=== PATIENT | male | born 1980 | race Caucasian/White ===

== ENCOUNTER 2025-02-09 09:03 | Emergency (ER) | payer OTHER, SELFPAY ==
[2025-02-09 09:12] VITALS: BP 170/113
[2025-02-09 09:32] VITALS: BP 140/99
[2025-02-09 09:34] VITALS: BMI 34.2
--- NOTE | 2025-02-09 09:37 | ED.GENMED ---
History of Present Illness
<Randolph Peng MD - Last Filed: 02/09/25 19:40>
General
Chief Complaint: Blood Pressure Problem
Time Seen by Provider: 02/09/25 09:27
<Gardenia Morris MD, Resident - Last Filed: 02/09/25 12:30>
General
Source: patient
Exam Limitations: none
History of Present Illness
History of Present Illness:
Patient is a 44-year-old male who presents to the emergency department due to concerns of fatigue and high blood pressure. He has a history of ADHD for which he takes Adderall as needed for. He was in his normal state of health until Saturday
where he started to feel sluggish and fatigued. he likened the symptoms to a presentation that similar to his brother who contracted Lyme's disease last year. Is worried about possibly norm Lyme's let him to take his blood pressure. He
feels like he has tightness/tension in his chest area. Systolic blood pressure at home was measured between 170-180. The patient did not experience any pain, shortness of breath, nausea or vomiting. he attempted to relax and ignore the symptoms
but unfortunately he felt worried enough to go to the urgent care where they recommended that he present to the emergency department for further evaluation. He arrived to the emergency department but did not get triaged as he was uncertain if his
insurance would pay for the visit and he did not want to pay [id number]. The day prior to his presentation he went to the gym where he spent time in the sauna and then did some workout with lifting weights included. While he was on the
elliptical machine he noticed that his heart rate was 120 when it is usually elevated higher. Following his time at the gym he continued to feel extremely tired and was sleepy while he was driving which is not characteristic for him usually.
Past History
<Randolph Peng MD - Last Filed: 02/09/25 19:40>
Social History
Tobacco: Non-smoker
<Gardenia Morris MD, Resident - Last Filed: 02/09/25 12:30>
Past History
ED Past Medical History: Psychiatric ( ADHD)
ED Past Surgical History: Orthopedic ( right Achilles tendon repair)
Patient has exhibited threatening behavior?: No
Social History
Alcohol: Occasional
Drug: None
Employment: Employed
Family History
Family History: Hypertension ( father has hypertension) and Other ( grandfather has history of scleroderma)
Review of Systems
<Gardenia Morris MD, Resident - Last Filed: 02/09/25 12:30>
Review of Systems
Constitutional: Reports fatigue
EENT: Reports no symptoms
Respiratory: Reports no symptoms
Cardiac: Reports other ( chest tightness/tension)
ABD/GI: Reports no symptoms
: Reports no symptoms
Musculoskeletal: Reports no symptoms
Skin: Reports no symptoms
Neurological: Reports no symptoms
Endocrine: Reports no symptoms
Hematologic/Lymphatic: Reports no symptoms
Psychiatric: Reports no symptoms
Phy Exam
<Gardenia Morris MD, Resident - Last Filed: 02/09/25 12:30>
General Physical Exam
General Presentation: well appearing and no apparent distress
General age: appears stated age
General Skin: warm and dry
General Habitus: normal
General Mental: alert
General Hydration: appears well hydrated
ENT Exam
Additional ENT: Mallampati 3 airway
Cardiovascular Exam
Cardiovascular Exam: regular rate/rhythm, no edema, no gallop, no JVD, no murmur and normal peripheral pulses
Pulmonary Exam
Pulmonary Exam: lungs clear, no respiratory distress, no rales, chest non tender, no crackles, no rhonchi, no stridor, no wheezing and no cough
Neurological Exam
Neurological Exam: alert, oriented x3 and no motor deficits
Musculoskeletal Exam
Musculoskeletal Exam: full ROM
Psychiatric Exam
Psychiatric Exam: normal mood/affect
Course
<Randolph Peng MD - Last Filed: 02/09/25 19:40>
Orders/Labs/Results
Orders:
Orders
02/09/25 09:15
Electrocardiogram (*1) Urgent
Reason for Study: Hypertension, Benign
EKG- Treatment ONCE
02/09/25 10:19
Cardiovascular Evaluation Urgent
Comment: ADD ON
Complete Blood Count/No Diff Urgent
Comprehensive Metabolic Panel Urgent
LDL Cholesterol, Direct Urgent
Lyme Progressive Urgent
Troponin I Urgent
02/09/25 10:52
Add On- LAB Urgent
Tests Added?: TSH with reflex to free T4
Add On- LAB Urgent
Tests Added?: lipid panel
02/09/25 11:08
Add On- LAB Urgent
Tests Added?: lyme progress
02/09/25 11:15
Urinalysis Reflex To Culture Urgent
Date Specimen was Collected: 02/09/25
Time Specimen was Collected: 11:10
02/09/25 11:51
Add On- LAB Urgent
Tests Added?: lyme progressive
02/09/25 12:24
Discharge Patient As Directed
Abnormal Lab Results
02/09/25 02/09/25
10:19 11:15
WBC 10.9 H 10^3/uL
(4.8-10.8)
RBC 4.66 L 10^6/uL
(4.70-6.10)
MCH 32.8 H pg
(27.0-31.0)
Sodium 133 L mmol/L
(135-145)
AST 61 H U/L
(17-59)
ALT 66 H U/L
(0-50)
Triglycerides 1137 H mg/dl
(10-149)
Total Cholesterol 205 H mg/dl
(50-199)
Urine Ketones 1+ A
(Negative)
02/09/25 10:19
02/09/25 10:19
Vital Signs
Initial and Last Documented VS:
Initial Vital Signs
Temp Pulse Resp BP Pulse Ox
98.2 F 91 16 170/113 98
02/09/25 09:12 02/09/25 09:12 02/09/25 09:12 02/09/25 09:12 02/09/25 09:12
Last Documented Vital Signs
Temp Pulse Resp BP Pulse Ox
98.2 F 90 19 143/106 97
02/09/25 09:12 02/09/25 12:30 02/09/25 12:30 02/09/25 12:00 02/09/25 12:30
<Gardenia Morris MD, Resident - Last Filed: 02/09/25 12:30>
Orders/Labs/Results
Orders:
Orders
02/09/25 09:15
Electrocardiogram (*1) Urgent
Reason for Study: Hypertension, Benign
EKG- Treatment ONCE
02/09/25 10:19
Cardiovascular Evaluation Urgent
Comment: ADD ON
Complete Blood Count/No Diff Urgent
Comprehensive Metabolic Panel Urgent
LDL Cholesterol, Direct Urgent
Lyme Progressive Urgent
Troponin I Urgent
02/09/25 10:52
Add On- LAB Urgent
Tests Added?: TSH with reflex to free T4
Add On- LAB Urgent
Tests Added?: lipid panel
02/09/25 11:08
Add On- LAB Urgent
Tests Added?: lyme progress
02/09/25 11:15
Urinalysis Reflex To Culture Urgent
Date Specimen was Collected: 02/09/25
Time Specimen was Collected: 11:10
02/09/25 11:51
Add On- LAB Urgent
Tests Added?: lyme progressive
02/09/25 12:24
Discharge Patient As Directed
Abnormal Lab Results
02/09/25 02/09/25
10:19 11:15
WBC 10.9 H 10^3/uL
(4.8-10.8)
RBC 4.66 L 10^6/uL
(4.70-6.10)
MCH 32.8 H pg
(27.0-31.0)
Sodium 133 L mmol/L
(135-145)
AST 61 H U/L
(17-59)
ALT 66 H U/L
(0-50)
Triglycerides 1137 H mg/dl
(10-149)
Total Cholesterol 205 H mg/dl
(50-199)
Urine Ketones 1+ A
(Negative)
02/09/25 10:19
02/09/25 10:19
Vital Signs
Initial and Last Documented VS:
Initial Vital Signs
Temp Pulse Resp BP Pulse Ox
98.2 F 91 16 170/113 98
02/09/25 09:12 02/09/25 09:12 02/09/25 09:12 02/09/25 09:12 02/09/25 09:12
Last Documented Vital Signs
Temp Pulse Resp BP Pulse Ox
98.2 F 90 19 143/106 97
02/09/25 09:12 02/09/25 12:30 02/09/25 12:30 02/09/25 12:00 02/09/25 12:30
<Randolph Peng MD - Last Filed: 02/09/25 19:40>
*Pulse Oximetry
SaO2: 97
Oxygen Mode of Delivery: Room air
*EKG
Interpreted by ED Provider?: Yes
EKG Intrepretation Date: 02/09/25
Heart Rate: 98
Rate: normal
Rhythm: sinus
[place]: normal axis
Interval: normal interval
<Gardenia Morris MD, Resident - Last Filed: 02/09/25 12:30>
*Pulse Oximetry
Patient hypoxic: no
*Critical Care Note
Total Time (30-74mins, 75-104mins- exclusive of procedures): 60
<Gardenia Morris MD, Resident - Last Filed: 02/09/25 12:30>
Update Note
Update Note:
Problem List:
Fatigue
high blood pressure
chest tightness
Plan:
EKG
CBC and CMP
troponins
Lyme serology
lipid panel
TSH with reflex to T4
Lyme serology
IV fluid support
Differential Diagnoses:
acute coronary syndrome
essential hypertension
pericarditis
Lyme's disease
sleep apnea
Radiology: not applicable
EKG: normal sinus rhythm, normal EKG
Labs:
CBC with leukocytosis of 10.9 white blood cells
CMP sodium of 133, AST of 61, ALT of 66
lipid panel with triglycerides of 1137 and total cholesterol of 205
TSH with reflex to T4�pending
troponins within normal limits
urine analysis with 1+ positive ketones
Lyme serology pending
Updates:
patient does not have any signs or symptoms of any neurological deficit so there is no need for head CT
Patient would like to be discharged without any additional medications and would like to follow-up with a primary care provider of his choice for education and management for hypertension
patient has a family medicine physician in mind for further and will follow-up with them after discharge. patient has a family medicine physician in mind for future follow-up after discharge. [facility] medicine residency clinic
information also included in case patient is unable to follow-up with the primary care physician he has in mind.
Patient should follow-up for management of his hyperlipidemia and for future blood pressure monitoring and management.
Follow-up on lyme serology
ED Attending Note
<Randolph Peng MD - Last Filed: 02/09/25 19:40>
ED Attending Note
Patient seen and examined by attending physician: Yes
ED Attending Note:
Pt without any sig. past medical, who hasn't seen pmd for some time, presents to ED secondary to persistently elevated blood pressure at home for the past 4 days, when checked at home. Pt initially checked his blood pressure because he felt fatigued
and tired, more than usual. Denies fever/chills. Denies headache/dizziness. Denies blurred vision. Denies sob. Denies n/v. Denies difficulty with urination. Denies recent illness. Denies recent travel. Denies rash. Denies tick/insect bite. Denies
recent change in diet or weight change.
General: well nourished male, in no acute distress. afebrile. hypertensive
Heent: nc/at. eomi
Lungs: cta
Heart: rrr. no murmur
Abd: soft and nontender
Neuro: aao x 3. no focal neurological deficit
Ext: no edema
Skin: warm to touch. no rash.
Psych: pleasant and cooperative
Pt with an unremarkable workup, along with mild improvement in BP during observation. Pt without any evidence of end organ damage. Discussed treatment options, including initiation of BP medication. However, at this time, patient would like to
withhold starting medications, but modify diet and increase exercise along with close pcp f/u. Will return with any worsening symptoms, i.e headache/chest pain/dizzinesss/sob. Pt otherwise is afebrile, hemodynamically stable, neurologically intact,
without any distress, at time of discharge
-
Portions of this chart may have been created with voice recognition software.� Occasional wrong word or��sound alike� substitutions may have occurred due to the inherent limitations of voice recognition software.
Discharge Plan
Departure
Patient Disposition: Home (Routine Discharge)
Date of Disposition: 02/09/25
Time of Disposition: 11:54
Patient with high blood pressure during this ER visit?: Yes
Discharge Problem:
Hypertension
Instructions: High Blood Pressure (DC), BLOOD PRESSURE
Prescriptions:
No Action
hydrocodone-acetaminophen 5 MG/500 MG tablet
1 tab PO .Q4-6HPRN PRN (Reason: PAIN) Qty: 20 0RF
Referrals:
[facility] [Outside] - Follow up in 1 week
NONE,* [Family Provider, Internal Medicine]
Activity Restrictions/Additional Instructions:
Follow-up on lyme serology labwork
Interventions
Interventions:
*Risk Screen - Suicide Last Done: 02/09/25 09:12
*General Assessment Last Done: 02/09/25 09:32
*Neglect/Abuse Screening Last Done: 02/09/25 09:12
*ED- Fall Risk Assessment Last Done: 02/09/25 09:32
*ED COVID-19 Vaccine History Last Done: 02/09/25 09:32
*Nursing Disposition Last Done: 02/09/25 12:40
ED- Cardiac Assessment Last Done: 02/09/25 09:31
ED- Neurological Assessment Last Done: 02/09/25 09:31
ED- Pulmonary Assessment Last Done: 02/09/25 09:31
Discharge Date and Time
Discharge Date/Time: 02/09/25 12:46
Print Language: PERSIAN
[2025-02-09 10:32] LABS: Hematocrit 43.8 % (39.0-52.0); Hemoglobin 15.3 g/dL (13.0-18.0); Mean Corp Hgb Conc. 34.9 g/dL (33.0-37.0); Mean Corpuscular Volume 94.0 fL (80.0-94.0); Platelet Count 350 10^3/uL (130-400); Red Cell Dist. Width 11.8 % (11.5-14.5)
[2025-02-09 10:46] LABS: ALT (SGPT) 66 U/L (0-50); AST (SGOT) 61 U/L (17-59); Albumin 4.2 g/dl (3.5-5.0); Alkaline Phosphatase 89 U/L (38-126); Blood Urea Nitrogen 17 mg/dl (9-20); Calcium 9.2 mg/dl (8.4-10.2); Carbon Dioxide 22 mmol/L (22-30); Chloride 107 mmol/L (98-107); Estimated Creatinine Clearance > 125 ml/min; Glucose 94 mg/dl (70-99); Potassium 4.5 mmol/L (3.5-5.1); Sodium 133 mmol/L (135-145); Total Protein 6.9 g/dl (6.3-8.2); eGFR > 60.00
[2025-02-09 10:56] LABS: Troponin I < 0.012 ng/ml
[2025-02-09 11:00] VITALS: BP 157/144
[2025-02-09 11:14] LABS: HDL Cholesterol 42 mg/dl
[2025-02-09 11:29] LABS: Urine Character Clear (Clear)
[2025-02-09 11:52] LABS: LDL Cholesterol, Direct 37 mg/dl
[2025-02-09 12:00] VITALS: BP 143/106
[2025-02-11 16:01] LABS: Lyme Antibody Screen, EIA Negative (Negative)
== END 2025-02-09 12:46 | disposition home or self-care (01) ==
LOC: EMR 09:03
PROVIDERS: EMERGENCY PHYSICIAN Emergency Medicine
DX: I10 Essential (primary) hypertension (principal); R53.83 Other fatigue
CPT/HCPCS: 99284; 80053; 80061; 81003; 83721; 84484; 85027; 86618; 93005